=== PATIENT | female | born 1935 | race Caucasian/White ===

== ENCOUNTER 2016-10-02 13:31 | Inpatient (IN) | payer MEDICARE, MEDICAID ==
[~2016-10-02] VITALS: Ht 160 cm; Wt 82.3 kg
[2016-10-02] MEDS ORDERED: DUONEB INH ONE (15:43)
[2016-10-02] MEDS ORDERED: METHYLPRED SOD SUCC 125 MG/2 ML VIAL ONE (15:49)
[2016-10-02] MEDS ORDERED: NEB-XOPENEX 1.25 MG/3 ML INH ONE (16:20)
[2016-10-02] MEDS ORDERED: NEB-ATROVENT INH ONE (18:57)
[2016-10-02] MEDS ORDERED: NEB-XOPENEX 0.63 MG/3 ML INH ONE (18:57)
[2016-10-02] MEDS ORDERED: PHARMACY TO DOSE VANCOMYCIN IV SCH (20:45)
[2016-10-02] MEDS ORDERED: NEB-ALBUTEROL 2.5 MG/3 ML INH PRN (20:45)
[2016-10-02] MEDS ORDERED: PHARMACY TO DOSE LEVAQUIN IV SCH (20:45)
[2016-10-02] MEDS ORDERED: PHARMACY TO DOSE XX SCH (20:50)
[2016-10-02] MEDS ORDERED: BISACODYL 10 MG SUPP RECTAL PRN (21:00)
[2016-10-02] MEDS ORDERED: SALINE FLUSH 10 ML FLUSH PRN (21:00)
[2016-10-02] MEDS ORDERED: MAG HYDROX 30 ML UDC PO PRN (21:00)
[2016-10-02] MEDS ORDERED: ACETAMINOPHEN 325 MG TAB PO PRN (21:00)
[2016-10-02] MEDS ORDERED: GLUCAGON 1 MG VIAL IM PRN (21:00)
[2016-10-02] MEDS ORDERED: BISACODYL EC 5 MG TAB PO PRN (21:00)
[2016-10-02] MEDS ORDERED: ALU/MAG/SIM 30 ML UDC PO PRN (21:00)
[2016-10-02] MEDS: GUAIFENESIN ER 600 MG TABCR PO SCH (21:00)
[2016-10-02 22:13] VITALS: Ht 160 cm; Wt 82.3 kg
[2016-10-02 22:14] VITALS: BP_SYST 130; BP_SYST 150; RESP 16; TEMP 98.1
[2016-10-02] MEDS ORDERED: VANCOMYCIN 1,500 MG in SODIUM CHLORIDE 0.9% 250 ML IV ONE (22:15)
[2016-10-02] MEDS ORDERED: LEVOFLOXACIN 750 MG/150 ML 150 ML IV SCH (22:25)
[2016-10-02] MEDS: ENOXAPARIN 80 MG/0.8 ML SYR SUBQ SCH (23:00)
[2016-10-02] MEDS: NEB-XOPENEX 0.63 MG/3 ML INH SCH (23:00)
[2016-10-02] MEDS: NEB-BUDESONIDE 0.5 MG INH SCH (23:00)
[2016-10-02] MEDS ORDERED: DUONEB INH SCH (23:00)
[2016-10-02] MEDS: NEB-BROVANA 15 MCG/2 ML INH SCH (23:01)
[2016-10-02 23:02] VITALS: RESP 20
[2016-10-02] MEDS: IPRATROPIUM 0.06% NARE EACH SCH (23:44)
[2016-10-02] MEDS: METHYLPRED SOD SUCC 125 MG/2 ML VIAL IV SCH (23:44)
[2016-10-02 23:58] VITALS: BP_SYST 150; RESP 16; TEMP 97.4
[2016-10-03] MEDS: SODIUM CHLORIDE 0.9% 1,000 ML IV SCH ×2 (00:29→20:09)
[2016-10-03 04:10] VITALS: BP_SYST 140; RESP 20; TEMP 96.7
[2016-10-03] MEDS: SODIUM CHLORIDE 0.9% FLUSH BAG 500 ML IV SCH (05:53)
[2016-10-03] MEDS: NEB-XOPENEX 0.63 MG/3 ML INH SCH ×2 (06:31→11:58)
[2016-10-03] MEDS: NEB-BUDESONIDE 0.5 MG INH SCH ×2 (06:31→20:27)
[2016-10-03] MEDS: NEB-BROVANA 15 MCG/2 ML INH SCH ×2 (06:31→20:27)
[2016-10-03] MEDS ORDERED: MDI-SPIRIVA 5 DOSES INH SCH (07:00)
[2016-10-03 07:45] VITALS: BP_SYST 138; RESP 18; TEMP 97.3
[2016-10-03] MEDS: SALINE FLUSH 10 ML FLUSH SCH ×2 (08:22→19:41)
[2016-10-03] MEDS: METHYLPRED SOD SUCC 125 MG/2 ML VIAL IV SCH (08:23)
[2016-10-03] MEDS: ROFLUMILAST 500 MCG TAB PO SCH (08:24)
[2016-10-03] MEDS: MONTELUKAST 10 MG TAB PO SCH (08:24)
[2016-10-03] MEDS: NEBIVOLOL 2.5 MG TAB PO SCH (08:24)
[2016-10-03] MEDS: GUAIFENESIN ER 600 MG TABCR PO SCH ×2 (08:25→21:00)
[2016-10-03] MEDS: ASPIRIN 81 MG CHEW TAB PO SCH (08:25)
[2016-10-03] MEDS: IPRATROPIUM 0.06% NARE EACH SCH ×2 (08:40→21:00)
[2016-10-03 11:27] VITALS: BP_SYST 136; RESP 18; TEMP 97.5
[2016-10-03] MEDS: ENOXAPARIN 80 MG/0.8 ML SYR SUBQ SCH ×2 (11:54→23:00)
[2016-10-03] MEDS: LEVEMIR INSULIN SUBQ SCH ×2 (12:02→17:44)
[2016-10-03] MEDS: CEFTRIAXONE 1 GM in SODIUM CHLORIDE 0.9% 50 ML IV SCH (12:03)
[2016-10-03] MEDS: DUONEB INH SCH ×3 (15:21→23:33)
[2016-10-03 20:36] VITALS: BP_SYST 128; RESP 18; TEMP 97.5
[2016-10-03] MEDS: CYCLOBENZAPRINE 5 MG TAB PO PRN (21:27)
[2016-10-03] MEDS ORDERED: VANCOMYCIN 1,250 MG in SODIUM CHLORIDE 0.9% 250 ML IV SCH (23:00)
[2016-10-03] MEDS ORDERED: VANCOMYCIN 1,500 MG in SODIUM CHLORIDE 0.9% 250 ML IV SCH (23:00)
[2016-10-03 23:15] VITALS: BP_SYST 130; RESP 18; TEMP 97.8
[2016-10-04] MEDS: DUONEB INH SCH ×6 (03:00→23:53)
[2016-10-04] MEDS: SODIUM CHLORIDE 0.9% FLUSH BAG 500 ML IV SCH (05:48)
[2016-10-04 07:47] VITALS: BP_SYST 138; RESP 22; TEMP 96.9
[2016-10-04] MEDS: NEB-BUDESONIDE 0.5 MG INH SCH ×2 (07:58→19:00)
[2016-10-04] MEDS: NEB-BROVANA 15 MCG/2 ML INH SCH ×2 (07:58→19:00)
[2016-10-04] MEDS: METHYLPRED SOD SUCC 40 MG VIAL IV SCH ×2 (08:39→09:00)
[2016-10-04] MEDS: LEVEMIR INSULIN SUBQ SCH ×2 (08:40→17:51)
[2016-10-04] MEDS: SALINE FLUSH 10 ML FLUSH SCH ×2 (08:40→21:22)
[2016-10-04] MEDS: NEBIVOLOL 2.5 MG TAB PO SCH (08:40)
[2016-10-04] MEDS: MONTELUKAST 10 MG TAB PO SCH (08:40)
[2016-10-04] MEDS: ROFLUMILAST 500 MCG TAB PO SCH (08:40)
[2016-10-04] MEDS: IPRATROPIUM 0.06% NARE EACH SCH ×2 (08:41→21:00)
[2016-10-04] MEDS: ASPIRIN 81 MG CHEW TAB PO SCH (08:41)
[2016-10-04] MEDS: GUAIFENESIN ER 600 MG TABCR PO SCH ×2 (08:42→21:00)
[2016-10-04] MEDS: CEFTRIAXONE 1 GM in SODIUM CHLORIDE 0.9% 50 ML IV SCH (08:55)
[2016-10-04] MEDS: ENOXAPARIN 80 MG/0.8 ML SYR SUBQ SCH (11:00)
[2016-10-04] MEDS: LORAZEPAM 0.5 MG TAB PO PRN (11:24)
[2016-10-04] MEDS ORDERED: OPTIRAY 350 100 ML VIAL HMH IV ONE (12:27)
[2016-10-04 16:19] VITALS: BP_SYST 140; RESP 18; TEMP 97.3
[2016-10-04] MEDS: NEB-NACL 3% 4 ML NEBU INH SCH ×2 (18:30→23:53)
[2016-10-04 19:40] VITALS: BP_SYST 150; RESP 18; TEMP 97.8
[2016-10-04] MEDS ORDERED: MISSING DOSE XX ONE (20:05)
[2016-10-05] VITALS (7 sets, daily range): BP systolic 144–180; RESP 18–20; TEMP 96.8–98.1
[2016-10-05] MEDS: DUONEB INH SCH ×6 (02:54→22:58)
[2016-10-05] MEDS: NEB-BUDESONIDE 0.5 MG INH SCH ×2 (06:35→19:02)
[2016-10-05] MEDS: NEB-BROVANA 15 MCG/2 ML INH SCH ×2 (06:35→19:02)
[2016-10-05] MEDS: NEB-NACL 3% 4 ML NEBU INH SCH ×4 (06:35→22:59)
[2016-10-05] MEDS: SODIUM CHLORIDE 0.9% FLUSH BAG 500 ML IV SCH (06:41)
[2016-10-05] MEDS ORDERED: MISSING DOSE XX ONE (07:50)
[2016-10-05] MEDS: ENOXAPARIN 40 MG/0.4 ML SYR SUBQ SCH ×2 (09:00→09:19)
[2016-10-05] MEDS: IPRATROPIUM 0.06% NARE EACH SCH ×2 (09:00→21:00)
[2016-10-05] MEDS: GUAIFENESIN ER 600 MG TABCR PO SCH ×2 (09:00→21:00)
[2016-10-05] MEDS: ROFLUMILAST 500 MCG TAB PO SCH (09:19)
[2016-10-05] MEDS: ASPIRIN 81 MG CHEW TAB PO SCH (09:19)
[2016-10-05] MEDS: NEBIVOLOL 2.5 MG TAB PO SCH (09:19)
[2016-10-05] MEDS: MONTELUKAST 10 MG TAB PO SCH (09:19)
[2016-10-05] MEDS: LEVEMIR INSULIN SUBQ SCH ×2 (09:20→16:54)
[2016-10-05] MEDS: CEFTRIAXONE 1 GM in SODIUM CHLORIDE 0.9% 50 ML IV SCH (09:20)
[2016-10-05] MEDS: METHYLPRED SOD SUCC 40 MG VIAL IV SCH (09:21)
[2016-10-05] MEDS: SALINE FLUSH 10 ML FLUSH SCH ×2 (09:21→21:53)
[2016-10-05] MEDS: LORAZEPAM 0.5 MG TAB PO PRN (11:52)
[2016-10-05] MEDS: Furosemide 40 MG TAB PO SCH (15:55)
[2016-10-05] MEDS: LISINOPRIL 10 MG TAB PO SCH (15:55)
[2016-10-06] MEDS: DUONEB INH SCH ×6 (02:40→23:23)
[2016-10-06 04:05] VITALS: BP_SYST 136; RESP 20; TEMP 96.8
[2016-10-06] MEDS: SODIUM CHLORIDE 0.9% FLUSH BAG 500 ML IV SCH (05:37)
[2016-10-06] MEDS: NEB-BROVANA 15 MCG/2 ML INH SCH ×2 (07:12→18:53)
[2016-10-06] MEDS: NEB-BUDESONIDE 0.5 MG INH SCH ×2 (07:12→18:53)
[2016-10-06] MEDS: NEB-NACL 3% 4 ML NEBU INH SCH ×4 (07:12→23:23)
[2016-10-06 07:58] VITALS: BP_SYST 162; RESP 18; TEMP 97.3
[2016-10-06] MEDS: SALINE FLUSH 10 ML FLUSH SCH ×2 (08:48→20:16)
[2016-10-06] MEDS: LEVEMIR INSULIN SUBQ SCH ×2 (08:50→16:42)
[2016-10-06] MEDS: ENOXAPARIN 40 MG/0.4 ML SYR SUBQ SCH (08:50)
[2016-10-06] MEDS: CEFTRIAXONE 1 GM in SODIUM CHLORIDE 0.9% 50 ML IV SCH (08:50)
[2016-10-06] MEDS: PREDNISONE 20 MG TAB PO SCH (08:51)
[2016-10-06] MEDS: Furosemide 40 MG TAB PO SCH (08:51)
[2016-10-06] MEDS: LISINOPRIL 10 MG TAB PO SCH (08:51)
[2016-10-06] MEDS: ROFLUMILAST 500 MCG TAB PO SCH (08:51)
[2016-10-06] MEDS: MONTELUKAST 10 MG TAB PO SCH (08:51)
[2016-10-06] MEDS: ASPIRIN 81 MG CHEW TAB PO SCH (08:52)
[2016-10-06] MEDS: NEBIVOLOL 2.5 MG TAB PO SCH (08:52)
[2016-10-06] MEDS: GUAIFENESIN ER 600 MG TABCR PO SCH ×2 (08:52→20:17)
[2016-10-06] MEDS: IPRATROPIUM 0.06% NARE EACH SCH ×2 (08:52→20:17)
[2016-10-06 10:41] VITALS: BP_SYST 142; RESP 20; TEMP 97.6
[2016-10-06] MEDS: LORAZEPAM 0.5 MG TAB PO PRN (16:00)
[2016-10-06 18:08] VITALS: BP_SYST 168; RESP 20; TEMP 98.3
[2016-10-06 20:06] VITALS: BP_SYST 120; RESP 20; TEMP 98.1
[2016-10-06 23:07] VITALS: BP_SYST 124; RESP 22; TEMP 97.3
[2016-10-07] MEDS: DUONEB INH SCH ×6 (02:32→22:42)
[2016-10-07 03:46] VITALS: BP_SYST 120; RESP 20; TEMP 98.3
[2016-10-07] MEDS: SODIUM CHLORIDE 0.9% FLUSH BAG 500 ML IV SCH (05:11)
[2016-10-07] MEDS: NEB-BROVANA 15 MCG/2 ML INH SCH ×2 (06:20→18:42)
[2016-10-07] MEDS: NEB-NACL 3% 4 ML NEBU INH SCH ×4 (06:20→22:42)
[2016-10-07] MEDS: NEB-BUDESONIDE 0.5 MG INH SCH ×2 (06:20→18:42)
[2016-10-07 07:59] VITALS: BP_SYST 140; RESP 24; TEMP 97.5
[2016-10-07] MEDS: ENOXAPARIN 40 MG/0.4 ML SYR SUBQ SCH (09:00)
[2016-10-07] MEDS: ASPIRIN 81 MG CHEW TAB PO SCH (09:00)
[2016-10-07] MEDS: IPRATROPIUM 0.06% NARE EACH SCH ×2 (09:00→21:00)
[2016-10-07] MEDS: GUAIFENESIN ER 600 MG TABCR PO SCH ×2 (09:00→21:00)
[2016-10-07] MEDS: SALINE FLUSH 10 ML FLUSH SCH ×2 (09:44→22:00)
[2016-10-07] MEDS: ROFLUMILAST 500 MCG TAB PO SCH (09:46)
[2016-10-07] MEDS: CEFTRIAXONE 1 GM in SODIUM CHLORIDE 0.9% 50 ML IV SCH (09:46)
[2016-10-07] MEDS: Furosemide 40 MG TAB PO SCH (09:47)
[2016-10-07] MEDS: NEBIVOLOL 2.5 MG TAB PO SCH (09:47)
[2016-10-07] MEDS: LISINOPRIL 10 MG TAB PO SCH (09:48)
[2016-10-07] MEDS: PREDNISONE 20 MG TAB PO SCH (09:48)
[2016-10-07] MEDS: MONTELUKAST 10 MG TAB PO SCH (09:49)
[2016-10-07] MEDS: LEVEMIR INSULIN SUBQ SCH ×2 (09:50→17:09)
[2016-10-07] MEDS: LORAZEPAM 0.5 MG TAB PO PRN (10:53)
[2016-10-07 12:45] VITALS: BP_SYST 124; RESP 24; TEMP 98.7
[2016-10-07] MEDS ORDERED: MISSING DOSE XX ONE (15:30)
[2016-10-07] MEDS: CYCLOBENZAPRINE 5 MG TAB PO PRN (16:02)
[2016-10-07 16:20] VITALS: BP_SYST 154; RESP 20; TEMP 97.9
[2016-10-07 19:44] VITALS: BP_SYST 120; RESP 20; TEMP 97.3
[2016-10-07 23:29] VITALS: BP_SYST 120; RESP 20; TEMP 97
[2016-10-08] MEDS: DUONEB INH SCH ×6 (02:34→22:35)
[2016-10-08 03:17] VITALS: BP_SYST 130; RESP 20; TEMP 97
[2016-10-08] MEDS: NEB-NACL 3% 4 ML NEBU INH SCH ×4 (06:33→22:34)
[2016-10-08] MEDS: NEB-BROVANA 15 MCG/2 ML INH SCH ×2 (06:33→18:58)
[2016-10-08] MEDS: NEB-BUDESONIDE 0.5 MG INH SCH ×2 (06:33→18:58)
[2016-10-08 08:02] VITALS: BP_SYST 168; RESP 24; TEMP 97.3
[2016-10-08] MEDS: GUAIFENESIN ER 600 MG TABCR PO SCH ×2 (09:00→22:07)
[2016-10-08] MEDS: IPRATROPIUM 0.06% NARE EACH SCH ×2 (09:00→22:07)
[2016-10-08] MEDS: ASPIRIN 81 MG CHEW TAB PO SCH (09:00)
[2016-10-08] MEDS: SODIUM CHLORIDE 0.9% FLUSH BAG 500 ML IV SCH (09:17)
[2016-10-08] MEDS: SALINE FLUSH 10 ML FLUSH SCH ×2 (09:17→22:07)
[2016-10-08] MEDS: CEFTRIAXONE 1 GM in SODIUM CHLORIDE 0.9% 50 ML IV SCH (09:19)
[2016-10-08] MEDS: LEVEMIR INSULIN SUBQ SCH ×2 (09:19→17:21)
[2016-10-08] MEDS: ROFLUMILAST 500 MCG TAB PO SCH (09:20)
[2016-10-08] MEDS: NEBIVOLOL 2.5 MG TAB PO SCH (09:20)
[2016-10-08] MEDS: MONTELUKAST 10 MG TAB PO SCH (09:21)
[2016-10-08] MEDS: Furosemide 40 MG TAB PO SCH (09:21)
[2016-10-08] MEDS: PREDNISONE 20 MG TAB PO SCH (09:21)
[2016-10-08] MEDS: LISINOPRIL 10 MG TAB PO SCH (09:22)
[2016-10-08 11:27] VITALS: BP_SYST 146; RESP 16; TEMP 97.9
[2016-10-08] MEDS: LORAZEPAM 0.5 MG TAB PO PRN (12:43)
[2016-10-08 15:23] VITALS: BP_SYST 144; RESP 20; TEMP 98.3
[2016-10-08 20:10] VITALS: BP_SYST 150; RESP 20; TEMP 97.7
[2016-10-08] MEDS: FLUTICASONE 0.05% NA BTL NARE EACH SCH (22:07)
[2016-10-08 23:19] VITALS: BP_SYST 152; RESP 20; TEMP 97.1
[2016-10-09] VITALS (8 sets, daily range): BP systolic 100–150; RESP 18–24; TEMP 96.8–97.6
[2016-10-09] MEDS: DUONEB INH SCH ×6 (02:29→22:26)
[2016-10-09] MEDS: NEB-BROVANA 15 MCG/2 ML INH SCH ×2 (06:19→18:40)
[2016-10-09] MEDS: NEB-NACL 3% 4 ML NEBU INH SCH ×4 (06:19→22:26)
[2016-10-09] MEDS: NEB-BUDESONIDE 0.5 MG INH SCH ×2 (06:19→18:40)
[2016-10-09] MEDS: SODIUM CHLORIDE 0.9% FLUSH BAG 500 ML IV SCH (06:24)
[2016-10-09] MEDS: DEXTROSE 50% SYRINGE 50 ML IV PRN ×2 (07:26→10:29)
[2016-10-09] MEDS: SALINE FLUSH 10 ML FLUSH SCH ×2 (07:26→22:52)
[2016-10-09] MEDS: LEVEMIR INSULIN SUBQ SCH ×2 (08:00→17:00)
[2016-10-09] MEDS: CEFTRIAXONE 1 GM in SODIUM CHLORIDE 0.9% 50 ML IV SCH (08:20)
[2016-10-09] MEDS: FLUTICASONE 0.05% NA BTL NARE EACH SCH ×2 (08:20→21:00)
[2016-10-09] MEDS: IPRATROPIUM 0.06% NARE EACH SCH ×2 (08:20→21:00)
[2016-10-09] MEDS: NEBIVOLOL 2.5 MG TAB PO SCH (09:00)
[2016-10-09] MEDS: Furosemide 40 MG TAB PO SCH (09:00)
[2016-10-09] MEDS: ROFLUMILAST 500 MCG TAB PO SCH (09:00)
[2016-10-09] MEDS: LISINOPRIL 10 MG TAB PO SCH (09:00)
[2016-10-09] MEDS: MONTELUKAST 10 MG TAB PO SCH (09:00)
[2016-10-09] MEDS: PREDNISONE 20 MG TAB PO SCH (09:00)
[2016-10-09] MEDS: GUAIFENESIN ER 600 MG TABCR PO SCH ×2 (09:00→21:00)
[2016-10-09] MEDS: ASPIRIN 81 MG CHEW TAB PO SCH (09:00)
[2016-10-09] MEDS ORDERED: MIDAZOLAM 2 MG/2 ML INJ ONE (11:28)
[2016-10-09] MEDS ORDERED: MIDAZOLAM 2 MG/2 ML INJ IV ONE (12:10)
[2016-10-09] MEDS ORDERED: DILAUDID 1 MG/ML AMP ONE (12:46)
[2016-10-09] MEDS: DILAUDID 1 MG/ML AMP IV PRN ×3 (14:19→22:54)
[2016-10-09] MEDS: OXYCODONE/APAP 5/325 TAB PO PRN (16:16)
[2016-10-10] MEDS: OXYCODONE/APAP 5/325 TAB PO PRN ×2 (00:38→11:07)
[2016-10-10] MEDS: DILAUDID 1 MG/ML AMP IV PRN ×2 (01:10→07:05)
[2016-10-10] MEDS: DUONEB INH SCH ×5 (02:25→18:46)
[2016-10-10 02:42] VITALS: BP_SYST 120; RESP 20; TEMP 96.2
[2016-10-10] MEDS: LORAZEPAM 0.5 MG TAB PO PRN (03:01)
[2016-10-10] MEDS ORDERED: ONDANSETRON 4 MG VIAL IV PRN (03:15)
[2016-10-10] MEDS: SODIUM CHLORIDE 0.9% FLUSH BAG 500 ML IV SCH (05:35)
[2016-10-10] MEDS: NEB-NACL 3% 4 ML NEBU INH SCH ×3 (06:30→18:30)
[2016-10-10] MEDS: NEB-BROVANA 15 MCG/2 ML INH SCH ×2 (07:20→18:44)
[2016-10-10] MEDS: NEB-BUDESONIDE 0.5 MG INH SCH ×2 (07:20→18:44)
[2016-10-10] MEDS: IPRATROPIUM 0.06% NARE EACH SCH ×2 (08:02→21:00)
[2016-10-10] MEDS: FLUTICASONE 0.05% NA BTL NARE EACH SCH ×2 (08:02→21:00)
[2016-10-10] MEDS ORDERED: humuLIN REG INSULIN IV PUSH ONE (08:05)
[2016-10-10] MEDS ORDERED: SODIUM CHLORIDE 0.9% 1,000 ML IV SCH (08:05)
[2016-10-10] MEDS ORDERED: DEXTROSE 50% SYRINGE 50 ML IV ONE (08:05)
[2016-10-10 08:07] VITALS: BP_SYST 100; RESP 20; TEMP 96.7
[2016-10-10] MEDS ORDERED: ONDANSETRON 4 MG VIAL IV PUSH ONE (08:25)
[2016-10-10] MEDS: GUAIFENESIN ER 600 MG TABCR PO SCH ×2 (08:39→21:00)
[2016-10-10] MEDS: SALINE FLUSH 10 ML FLUSH SCH ×2 (08:44→21:09)
[2016-10-10] MEDS: Furosemide 40 MG TAB PO SCH (08:45)
[2016-10-10] MEDS: LEVEMIR INSULIN SUBQ SCH ×2 (08:45→17:20)
[2016-10-10] MEDS: PREDNISONE 20 MG TAB PO SCH (08:45)
[2016-10-10] MEDS: NEBIVOLOL 2.5 MG TAB PO SCH (08:45)
[2016-10-10] MEDS: LISINOPRIL 10 MG TAB PO SCH (08:45)
[2016-10-10] MEDS: MONTELUKAST 10 MG TAB PO SCH (08:45)
[2016-10-10] MEDS: ASPIRIN 81 MG CHEW TAB PO SCH (08:46)
[2016-10-10] MEDS: CEFTRIAXONE 1 GM in SODIUM CHLORIDE 0.9% 50 ML IV SCH (08:46)
[2016-10-10] MEDS: ROFLUMILAST 500 MCG TAB PO SCH (08:46)
[2016-10-10 11:02] VITALS: BP_SYST 106; RESP 20; TEMP 96.4
[2016-10-10] MEDS: CYCLOBENZAPRINE 5 MG TAB PO PRN ×2 (12:50→21:15)
[2016-10-10] MEDS ORDERED: [UNRECOGNIZED DRUG - MIXTURE] PO PRN ×2 (14:25)
[2016-10-10 19:27] VITALS: BP_SYST 100; RESP 20; TEMP 98.3
[2016-10-10 23:15] VITALS: BP_SYST 110; RESP 20; TEMP 97.9
[2016-10-11] MEDS: NEB-NACL 3% 4 ML NEBU INH SCH ×3 (00:43→12:30)
[2016-10-11] MEDS: DUONEB INH SCH ×5 (00:43→15:08)
[2016-10-11] MEDS: SODIUM CHLORIDE 0.9% FLUSH BAG 500 ML IV SCH (00:56)
[2016-10-11] MEDS: SODIUM CHLORIDE 0.9% 1,000 ML IV SCH ×2 (00:56→10:12)
[2016-10-11 03:06] VITALS: BP_SYST 102; RESP 20; TEMP 97.7
[2016-10-11] MEDS: NEB-BROVANA 15 MCG/2 ML INH SCH (07:27)
[2016-10-11] MEDS: NEB-BUDESONIDE 0.5 MG INH SCH (07:27)
[2016-10-11] MEDS: SALINE FLUSH 10 ML FLUSH SCH (08:00)
[2016-10-11 08:20] VITALS: BP_SYST 130; RESP 18; TEMP 97.7
[2016-10-11] MEDS: IPRATROPIUM 0.06% NARE EACH SCH (08:25)
[2016-10-11] MEDS: FLUTICASONE 0.05% NA BTL NARE EACH SCH (08:25)
[2016-10-11] MEDS ORDERED: MISSING DOSE XX ONE (08:55)
[2016-10-11] MEDS: ASPIRIN 81 MG CHEW TAB PO SCH (09:00)
[2016-10-11] MEDS: GUAIFENESIN ER 600 MG TABCR PO SCH (09:00)
[2016-10-11] MEDS: LEVEMIR INSULIN SUBQ SCH (09:40)
[2016-10-11] MEDS: PREDNISONE 20 MG TAB PO SCH (09:40)
[2016-10-11] MEDS: ROFLUMILAST 500 MCG TAB PO SCH (09:40)
[2016-10-11] MEDS: NEBIVOLOL 2.5 MG TAB PO SCH (09:40)
[2016-10-11] MEDS: MONTELUKAST 10 MG TAB PO SCH (09:41)
[2016-10-11] MEDS: LISINOPRIL 10 MG TAB PO SCH (09:41)
[2016-10-11 12:19] VITALS: BP_SYST 150; RESP 20; TEMP 98
[2016-10-11 13:36] VITALS: BP_SYST 150; RESP 20; TEMP 98
[2016-10-11] MEDS: LORAZEPAM 0.5 MG TAB PO PRN (15:19)
== END 2016-10-11 16:02 | disposition home health service (06) | DRG 189 ==
LOC: ENRESERVTM → ENRESERVDT → ER 13:31 → EMR 20:43 → ENPENDDIS 20:43 → 4THW 22:00 → 3NT 10-04 18:42
PROVIDERS: ADMIT Internal Medicine; ATTEND Internal Medicine
PROC: 0W9B30Z Drainage of Left Pleural Cavity with Drainage Device, Percutaneous Approach (ICD-10-PCS; principal; 2016-10-09)
PROC: 0BBJ3ZX Excision of Left Lower Lung Lobe, Percutaneous Approach, Diagnostic (ICD-10-PCS; 2016-10-09)
DX: J96.21 Acute and chronic respiratory failure with hypoxia (principal); N17.9 Acute kidney failure, unspecified; J95.811 Postprocedural pneumothorax; I27.2 Other secondary pulmonary hypertension; C34.32 Malignant neoplasm of lower lobe, left bronchus or lung; I13.0 Hypertensive heart and chronic kidney disease with heart failure and stage 1 through stage 4 chronic kidney disease, or unspecified chronic kidney disease; I50.32 Chronic diastolic (congestive) heart failure; J44.1 Chronic obstructive pulmonary disease with (acute) exacerbation; J96.12 Chronic respiratory failure with hypercapnia; E11.9 Type 2 diabetes mellitus without complications; K21.9 Gastro-esophageal reflux disease without esophagitis; Z87.891 Personal history of nicotine dependence; N18.3 Chronic kidney disease, stage 3 (moderate); E78.5 Hyperlipidemia, unspecified; Z79.51 Long term (current) use of inhaled steroids; Z79.4 Long term (current) use of insulin; Z79.82 Long term (current) use of aspirin; Z82.3 Family history of stroke; Z82.49 Family history of ischemic heart disease and other diseases of the circulatory system; Z83.3 Family history of diabetes mellitus; Z82.5 Family history of asthma and other chronic lower respiratory diseases
CPT/HCPCS: 32405; 36415; 71010; 71260; 77012; 80048; 80053; 82553; 82947; 83880; 84484; 85025; 85379; 85610; 87040; 87278; 87299; 87804; 88307; 88333; 93005; 94640; 94664; 94668; 94799; 96365; 96375; 99223; 99232; 99233; 99238